=== PATIENT | female | born 1955 | race African-American/Black ===

== ENCOUNTER 2020-03-08 11:10 | Inpatient (IN) ==
[~2020-03-08 11:10] MED LIST: CETIRIZINE 10 MG TABLET PO ONE
[2020-03-08] MEDS ORDERED: ONDANSETRON 4 MG/2 ML VIAL IV STA (11:36)
[2020-03-08] MEDS ORDERED: SODIUM CHLORIDE 0.9% 1,000 ML IV STA ×2 (11:36→13:22)
[2020-03-08] MEDS ORDERED: ACETAMINOPHEN 500 MG TABLET PO STA (11:52)
[2020-03-08 12:22] LABS: Basophils % 0.2 % (0.0-0.8); Hematocrit 42.1 VOL% (35.7-47.0); Hemoglobin 13.9 GM/DL (12.0-16.0); Immature Granulocytes % 0.3 %; Immature Granulocytes Absolute 0.02 #; Lymphocytes # 1.3 10*3/uL (1.4-4.0); Lymphocytes % 19.6 % (21.3-54.2); Mean Corpuscular Volume 85.7 FL (87-102); Mean Platelet Volume 11.1 FL (9.6-12.0); Monocytes % 7.5 % (1.7-12.7); Neutrophils % 72.4 % (38.7-73.9); Platelet Count 194 T/CUMM (130-400); Red Blood Count 4.91 MC/CUMM (3.8-5.5); Red Cell Distribution Width 11.7 % (9.3-17.3); White Blood Count 6.4 T/CUMM (4-12)
[2020-03-08 12:56] LABS: Albumin 2.9 G/DL (3.4-5.0); Bilirubin,Total 1.5 MG/DL (0.2-1.0); Calcium 9.1 MG/DL (8.5-10.1); Ferritin 1637.9 ng/ml (8-252); Osmolality,Calculated 267.5 MOS/KG (273-304); Total Protein 7.5 G/DL (6.4-8.3)
[2020-03-08 13:03] LABS: Apearance,Urine CLEAR (Clear); Bilirubin,Urine Negative (Negative); Blood, Urine Negative (Negative); Glucose,Urine (UA) >=500 mg/dL (Negative); Hyaline Casts,Urine 1 /LPF (0-3); Ketones,Urine Negative (Negative); Mucus,Urine Occasional /LPF (Occasional); Nitrite,Urine Negative (Negative); Protein,Urine Negative; RBC,Urine <1 /HPF (0-4); Squamous Epithelial Cell,Urine Occasional /HPF (0-10); Urine Color Amber (Yellow); Urine Specific Gravity 1.022 (1.001-1.035); Urine Urobilinogen < 2.0 EU/DL (0.2-1.0); WBC,Urine 2 /HPF (0-6)
[2020-03-08 13:20] LABS: Band Neutrophils 5 % (0-10); Lymphocytes 15 % (20-55); Segmented Neutrophils 70 % (50-85); Total Cells Counted 100
[2020-03-08] MEDS ORDERED: POTASSIUM CHLORIDE 20 MEQ TABLET PO STA (13:21)
[2020-03-08 13:22] LABS: Atypical Lymphocytes Few; Polychromasia Slight
[2020-03-08] MEDS ORDERED: CETIRIZINE 10 MG TABLET PO STA (13:22)
[2020-03-08] MEDS ORDERED: FAMOTIDINE 20 MG/2 ML VIAL IV STA (13:22)
[2020-03-08] MEDS ORDERED: DEXTROSE 50% 25 GM/50 ML VIAL IV STA (13:22)
[2020-03-08 13:23] LABS: Hypochromasia 2+
[2020-03-08 13:28] LABS: Platelet Estimate Normal
[2020-03-08] MEDS ORDERED: DEXTROSE 50% 25 GM/50 ML SYRINGE IV ONE (13:40)
[2020-03-08] MEDS ORDERED: GLUCAGON 1 MG VIAL IM PRN (14:51)
[2020-03-08] MEDS ORDERED: DEXTROSE 50% 25 GM/50 ML VIAL IV PRN (14:51)
[2020-03-08] MEDS ORDERED: ACETAMINOPHEN 325 MG TABLET PO PRN (14:51)
[2020-03-08] MEDS ORDERED: ONDANSETRON 4 MG/2 ML VIAL IV PRN (14:51)
[2020-03-08] MEDS: INSULIN LISPRO 100 UNIT/ML SUBCUT SCH ×2 (16:48→19:56)
[2020-03-08] MEDS: DEXTROSE 5% NACL 0.45% 1,000 ML IV SCH (16:48)
[2020-03-08] MEDS: ENOXAPARIN 40 MG/0.4 ML SYRINGE SUBCUT SCH (17:32)
[2020-03-08] MEDS: FAMOTIDINE 20 MG TABLET PO SCH (20:25)
[2020-03-08] MEDS: HYDROXYCHLOROQUINE 200 MG TABLET PO SCH (20:25)
[2020-03-08] MEDS: DEXAMETHASONE 4 MG/1 ML VIAL IV SCH (20:26)
[2020-03-08] MEDS: cefTRIAXone 1,000 MG in SYRINGE 1 EACH IV SCH (20:26)
[2020-03-08] MEDS: DOCUSATE SODIUM 100 MG CAPSULE PO SCH (22:37)
[2020-03-09] MEDS: DEXTROSE 5% NACL 0.45% 1,000 ML IV SCH ×3 (00:12→14:06)
[2020-03-09] MEDS ORDERED: GLUCAGON 1 MG VIAL IM PRN (05:42)
[2020-03-09] MEDS ORDERED: DEXTROSE 50% 25 GM/50 ML VIAL IV PRN (05:42)
[2020-03-09 06:35] LABS: Calcium 8.4 MG/DL (8.5-10.1)
[2020-03-09] MEDS: INSULIN LISPRO 100 UNIT/ML SUBCUT SCH ×4 (08:04→21:40)
[2020-03-09] MEDS: HYDROXYCHLOROQUINE 200 MG TABLET PO SCH ×2 (08:35→21:40)
[2020-03-09] MEDS: ZINC SULFATE 220 MG CAPSULE PO SCH (08:35)
[2020-03-09] MEDS: DOCUSATE SODIUM 100 MG CAPSULE PO SCH ×2 (08:35→21:40)
[2020-03-09] MEDS: DEXAMETHASONE 4 MG/1 ML VIAL IV SCH ×2 (08:35→21:40)
[2020-03-09] MEDS: FAMOTIDINE 20 MG TABLET PO SCH ×2 (08:35→21:39)
[2020-03-09] MEDS: PANTOPRAZOLE 40 MG TABLET PO SCH (08:35)
[2020-03-09] MEDS: ENOXAPARIN 40 MG/0.4 ML SYRINGE SUBCUT SCH (21:40)
[2020-03-09] MEDS: cefTRIAXone 1,000 MG in SYRINGE 1 EACH IV SCH (21:40)
[2020-03-10] MEDS: HYDROXYCHLOROQUINE 200 MG TABLET PO SCH ×2 (08:50→21:48)
[2020-03-10] MEDS: PANTOPRAZOLE 40 MG TABLET PO SCH (08:50)
[2020-03-10] MEDS: FAMOTIDINE 20 MG TABLET PO SCH ×2 (08:50→21:48)
[2020-03-10] MEDS: ZINC SULFATE 220 MG CAPSULE PO SCH (08:51)
[2020-03-10] MEDS: DOCUSATE SODIUM 100 MG CAPSULE PO SCH ×2 (08:51→21:48)
[2020-03-10] MEDS: DEXAMETHASONE 4 MG/1 ML VIAL IV SCH ×2 (08:51→21:47)
[2020-03-10] MEDS: DEXTROSE 5% NACL 0.45% 1,000 ML IV SCH ×3 (09:32→21:49)
[2020-03-10] MEDS: INSULIN LISPRO 100 UNIT/ML SUBCUT SCH ×4 (09:33→21:48)
[2020-03-10] MEDS: cefTRIAXone 1,000 MG in SYRINGE 1 EACH IV SCH (21:47)
[2020-03-10] MEDS: ENOXAPARIN 40 MG/0.4 ML SYRINGE SUBCUT SCH (21:48)
[2020-03-11 06:06] LABS: Basophils % 0.1 % (0.0-0.8); Eosinophils % 0.1 % (0.00-10.9); Hematocrit 33.7 VOL% (35.7-47.0); Immature Granulocytes Absolute 0.08 #; Lymphocytes # 1.2 10*3/uL (1.4-4.0); Lymphocytes % 14.7 % (21.3-54.2); Mean Corpuscular HGB Conc 33.8 GM/DL (32-36); Mean Corpuscular Volume 84.9 FL (87-102); Mean Platelet Volume 10.7 FL (9.6-12.0); Monocytes % 5.8 % (1.7-12.7); Neutrophils % 78.3 % (38.7-73.9); Red Blood Count 3.97 MC/CUMM (3.8-5.5); Red Cell Distribution Width 11.7 % (9.3-17.3)
[2020-03-11 06:14] LABS: Calcium 8.5 MG/DL (8.5-10.1); Osmolality,Calculated 280.7 MOS/KG (273-304)
[2020-03-11 06:17] LABS: Hemoglobin 11.4 GM/DL (12.0-16.0); Platelet Count 277 T/CUMM (130-400); White Blood Count 8.4 T/CUMM (4-12)
[2020-03-11 06:25] LABS: Lymphocytes 15 % (20-55); Microcytosis 1+; Platelet Estimate Normal; Segmented Neutrophils 81 % (50-85); Total Cells Counted 100
[2020-03-11] MEDS: DEXTROSE 5% NACL 0.45% 1,000 ML IV SCH ×2 (07:54→14:40)
[2020-03-11] MEDS: PANTOPRAZOLE 40 MG TABLET PO SCH (08:27)
[2020-03-11] MEDS: HYDROXYCHLOROQUINE 200 MG TABLET PO SCH ×2 (08:27→21:38)
[2020-03-11] MEDS: DOCUSATE SODIUM 100 MG CAPSULE PO SCH ×2 (08:27→21:41)
[2020-03-11] MEDS: ZINC SULFATE 220 MG CAPSULE PO SCH (08:27)
[2020-03-11] MEDS: FAMOTIDINE 20 MG TABLET PO SCH ×2 (08:27→21:38)
[2020-03-11] MEDS: DEXAMETHASONE 4 MG/1 ML VIAL IV SCH ×2 (08:30→21:38)
[2020-03-11] MEDS: INSULIN LISPRO 100 UNIT/ML SUBCUT SCH ×4 (08:38→21:38)
[2020-03-11] MEDS: SODIUM CHLORIDE 0.45% 1,000 ML IV SCH ×2 (12:03→21:37)
[2020-03-11] MEDS: cefTRIAXone 1,000 MG in SYRINGE 1 EACH IV SCH (21:38)
[2020-03-11] MEDS: ENOXAPARIN 40 MG/0.4 ML SYRINGE SUBCUT SCH (21:38)
[2020-03-12] MEDS: SODIUM CHLORIDE 0.45% 1,000 ML IV SCH ×2 (06:36→22:25)
[2020-03-12] MEDS: INSULIN LISPRO 100 UNIT/ML SUBCUT SCH ×4 (08:02→20:55)
[2020-03-12] MEDS: DEXAMETHASONE 4 MG/1 ML VIAL IV SCH ×2 (09:14→20:56)
[2020-03-12] MEDS: HYDROXYCHLOROQUINE 200 MG TABLET PO SCH ×2 (09:16→20:53)
[2020-03-12] MEDS: FAMOTIDINE 20 MG TABLET PO SCH ×2 (09:16→20:53)
[2020-03-12] MEDS: DOCUSATE SODIUM 100 MG CAPSULE PO SCH ×2 (09:16→20:54)
[2020-03-12] MEDS: ZINC SULFATE 220 MG CAPSULE PO SCH (09:16)
[2020-03-12] MEDS: PANTOPRAZOLE 40 MG TABLET PO SCH (09:16)
[2020-03-12] MEDS: ENOXAPARIN 40 MG/0.4 ML SYRINGE SUBCUT SCH (20:56)
[2020-03-12] MEDS: cefTRIAXone 1,000 MG in SYRINGE 1 EACH IV SCH (20:59)
[2020-03-13 05:25] LABS: Basophils % 0.1 % (0.0-0.8); Eosinophils % 0.1 % (0.00-10.9); Hematocrit 35.7 VOL% (35.7-47.0); Hemoglobin 11.8 GM/DL (12.0-16.0); Immature Granulocytes % 1.4 %; Mean Corpuscular HGB Conc 33.1 GM/DL (32-36); Mean Platelet Volume 9.6 FL (9.6-12.0); Monocytes % 6.6 % (1.7-12.7); Neutrophils % 63.8 % (38.7-73.9); Platelet Count 373 T/CUMM (130-400); Red Blood Count 4.15 MC/CUMM (3.8-5.5); Red Cell Distribution Width 11.7 % (9.3-17.3)
[2020-03-13 05:40] LABS: Calcium 8.6 MG/DL (8.5-10.1); Osmolality,Calculated 279.5 MOS/KG (273-304)
[2020-03-13 05:49] LABS: Hypochromasia 1+; Lymphocytes 26 % (20-55); Microcytosis 1+; Nucleated Red Blood Cells 1 (0-5); Ovalocytes Slight; Platelet Estimate Adequate; Segmented Neutrophils 67 % (50-85); Total Cells Counted 100
[2020-03-13] MEDS ORDERED: MAGNESIUM SULF RIDER 4 GM in PREMIX 1 EACH IV PRN (06:05)
[2020-03-13] MEDS ORDERED: MAGNESIUM SULF RIDER 2 GM in PREMIX 1 EACH IV PRN (06:05)
[2020-03-13] MEDS: FAMOTIDINE 20 MG TABLET PO SCH (08:37)
[2020-03-13] MEDS: ZINC SULFATE 220 MG CAPSULE PO SCH (08:37)
[2020-03-13] MEDS: DOCUSATE SODIUM 100 MG CAPSULE PO SCH (08:37)
[2020-03-13] MEDS: PANTOPRAZOLE 40 MG TABLET PO SCH (08:37)
[2020-03-13] MEDS: HYDROXYCHLOROQUINE 200 MG TABLET PO SCH (08:37)
[2020-03-13] MEDS: INSULIN LISPRO 100 UNIT/ML SUBCUT SCH (08:38)
[2020-03-13] MEDS: DEXAMETHASONE 4 MG/1 ML VIAL IV SCH (08:38)
[2020-03-13 08:43] VITALS: BP 155/74
== END 2020-03-13 10:32 | disposition home or self-care (01) | DRG 177 ==
LOC: N.ED 11:10 → N.EDINP 13:24 → N.2E 14:51
PROVIDERS: ADMIT Family Medicine; ATTEND Family Medicine